=== PATIENT | female | born 1980 | race Caucasian/White ===

== ENCOUNTER 2019-05-18 20:29 | Emergency (ER) | payer SELFPAY | END 2019-05-18 23:15 | disposition home or self-care (01) | PROVIDERS: Emergency Provider Emergency Medicine; Visit Provider Emergency Medicine | DX: K80.20 Calculus of gallbladder without cholecystitis without obstruction (principal) | CPT/HCPCS: 74177; 76705; 80053; 81001; 81025; 83690; 85025; 96374; 96375; 99284; J2270; J2405; Q9967 ==

== ENCOUNTER 2020-03-23 09:30 | Outpatient (CLI) | payer OTHER, SELFPAY ==
--- NOTE | 2020-03-23 09:39 | MM_ITS ---
WS: [id number] Bilateral screening digital mammogram, 03/23/2020 Clinical Data: SCREENING Comparison: None. Findings: The breast parenchymal pattern shows fibroglandular tissue No spiculated masses or clustered calcific ations are seen. There are no secondary signs of carcinoma. MM/[id number] Impression: 1. Negative bilateral mammogram with no previous exams for review.. 2. Recommend annual screening mammograms. BIRADS: 1-Negative FOLLOW UP: 1 Year Follow-up The CAD drawing checker was used.
== END 2020-03-23 09:31 | disposition home or self-care (01) ==
LOC: RADSHAW 09:31
PROVIDERS: Visit Provider Nurse Practitioner Family
DX: Z12.31 Encounter for screening mammogram for malignant neoplasm of breast (principal)
CPT/HCPCS: 77067

== ENCOUNTER 2021-04-21 08:52 | Outpatient (CLI) | payer OTHER, SELFPAY ==
--- NOTE | 2021-04-21 09:04 | MM_ITS ---
WS: [id number] SCREENING DIGITAL MAMMOGRAM WITH CAD HISTORY: SCREENING COMPARISON: 03/23/2020 Bilateral CC and MLO views submitted. Computer aided detection analyzed. Breast composition: There are scattered areas of fibroglandular density. Hyperdensity 7 mm nodule in the anterior LEFT breast just lateral and above the nipple line. No additional interval suspicious fi ndings. There are benign calcifications within each breast. MM/[place] [id number] IMPRESSION: BI-RADS: 0-Incomplete: Need additional imaging evaluation FOLLOW UP: Need Additional Imaging LEFT breast: Spot compression views (CC and MLO). True ML. Ultrasound to follow if abnormality persists.
== END 2021-04-21 08:53 | disposition home or self-care (01) ==
PROVIDERS: Visit Provider Nurse Practitioner Family
DX: Z12.31 Encounter for screening mammogram for malignant neoplasm of breast (principal)
CPT/HCPCS: 77067

== ENCOUNTER 2021-05-04 11:27 | Outpatient (CLI) | payer OTHER, SELFPAY ==
--- NOTE | 2021-05-04 11:34 | US_ITS ---
WS: [id number] LEFT DIGITAL MAMMOGRAPHY WITH CAD CLINICAL INFORMATION: ABNORMAL MAMMOGRAM COMPARISON: April 21, 2021 TECHNIQUE: 3 views of the left breast were obtained. FINDINGS: Scattered fibroglandular densities of the left breast. Again seen is a 7 mm nodule in the anterior le ft breast just above the nipple line laterally. This persists on the spot compression views. Ultrasou nd is pending. ULTRASOUND BREAST LEFT TECHNIQUE: Ultrasound left breast focused area of concern. CLINICAL INFORMATION: ABNORMAL MAMMOGRAM COMPARISON: None. FINDINGS: Ultrasound left breast at the 12 to 3:00 position. No underlying cystic or solid lesions. No suspicio us lesions to target for biopsy. Normal underlying dense parenchymal breast tissue. US/US breast LT limited* [id number] IMPRESSION: BI-RADS: 2-Benign FOLLOW UP: 1 Year Follow-up Recommend return to annual screening mammography.
== END 2021-05-04 11:28 | disposition home or self-care (01) ==
PROVIDERS: Visit Provider Nurse Practitioner Family
DX: R92.8 Other abnormal and inconclusive findings on diagnostic imaging of breast (principal)
CPT/HCPCS: 76642; 77065

== ENCOUNTER 2022-06-12 07:58 | Outpatient (CLI) | payer OTHER, SELFPAY ==
--- NOTE | 2022-06-12 08:06 | MM_ITS ---
WS: [id number] BILATERAL SCREENING DIGITAL TOMOSYNTHESIS MAMMOGRAM WITH CAD HISTORY: SCREENING COMPARISON: 2020, 03/23/2020 Bilateral CC and MLO views with tomosynthesis and synthetic mammography submitted. Computer aided det ection analyzed. Breast composition: There are scattered areas of fibroglandular density. No suspicious masses, microc alcifications or architectural distortion. Numerous benign calcifications throughout the RIGHT breast . MM/[id number] IMPRESSION: BI-RADS: 2-Benign FOLLOW UP: 1 Year Follow-up
== END 2022-06-12 07:59 | disposition home or self-care (01) ==
LOC: RAD 07:59
DX: Z12.31 Encounter for screening mammogram for malignant neoplasm of breast (principal)
CPT/HCPCS: 77063; 77067

== ENCOUNTER 2022-07-08 02:04 | Emergency (ER) | payer SELFPAY ==
[2022-07-08] VITALS (95 sets, daily range): BP systolic 97–175; BP diastolic 61–97; PULSE 73–81; RESP 16–18; TEMP 37.3–37.4; O2SAT 95–99; BMI 33.8
--- NOTE | 2022-07-08 02:19 | USR_ITS ---
PROCEDURE INFORMATION: Exam: US Abdomen, Limited; Right Upper Quadrant Exam date and time: 07/08/2022 2:30 AM Age: 42 years old Clinical indication: Abdominal pain; Tenderness; Right upper quadrant (ruq); Additional info: Abd pain TECHNIQUE: Imaging protocol: Real time ultrasound of the abdomen with image documentation. Limited exam focused on the right upper quadrant. COMPARISON: US abdomen limited [id number] 05/18/2019 10:13 PM FINDINGS: Liver: Normal. No masses. Gallbladder: Gallstones and sludge with wall thickening up to 8.3 mm consistent with cholecystitis. Biliary ducts: Common bile duct measures up to 8.8 mm suggesting a possible distal stone. Pancreas: Visualized pancreas is unremarkable. Right kidney: Normal. No mass. No hydronephrosis. US/US gall bladder [id number] IMPRESSION: Gallstones with cholecystitis and possible distal ductal stone.
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
[2022-07-08] MEDS: ondansetron 2 mg/ML SDV 2 mL 4 MG IVP (02:29)
[2022-07-08] MEDS: morphine 4 mg/mL SDV 1 mL IVP (02:29)
[2022-07-08 02:34] LABS: Basophils # 0.1 10^3/uL (0.0-0.1); Basophils % 0.3 %; Eosinophils % 0.1 %; Hematocrit 46.2 % (37.0-47.0); Hemoglobin 15.7 g/dL (11.5-15.3); Lymphocytes # 1.3 10^3/uL (0.8-4.8); Lymphocytes % 6.6 %; Mean Corpuscular Hemoglobin 29.8 pg (28.0-34.0); Mean Corpuscular Volume 87.7 fl (81-99); Mean Platelet Volume 9.3 fL (7.4-10.4); Monocytes % 5.2 %; Neutrophils # 17.17 10^3/uL (1.8-7.7); Neutrophils % 87.2 %; Nucleated Red Blood Cells % 0 %; Platelet Count 310 10^3/cmm (130-400); Red Blood Count 5.27 10^6/uL (4.1-5.3); White Blood Count 19.7 10^3/uL (4.0-10.0)
[2022-07-08 02:53] LABS: Alanine Aminotransferase 152 U/L (0-33); Albumin Level 4.3 g/dL (3.5-5.2); Alkaline Phosphatase 109 U/L (35-105); Anion Gap 16.6 (5-19); Aspartate Amino Transferase 88 U/L (0-32); Blood Urea Nitrogen 7 mg/dL (6-20); Calcium 9.2 mg/dL (8.5-10.5); Carbon Dioxide 23 mmol/L (22-29); Chloride 96 mmol/L (98-107); Glomerular Filtration Rate 134.7 mL/min (90-130); Glucose 154 mg/dL (65-115); Lipase 31 U/L (13-60); Osmolality Calculated 275 mOsm/kg (285-295); Potassium 3.6 mmol/L (3.5-5.1); Sodium 132 mmol/L (136-145); Total Bilirubin 0.5 mg/dL (0.15-1.2); Total Protein 7.3 g/dL (6.6-8.7)
[2022-07-08 03:22] LABS: HCG, Serum Qual Negative (Negative)
--- NOTE | 2022-07-08 03:29 | MRR_ITS ---
PROCEDURE INFORMATION: Exam: MR Abdomen Without Contrast Exam date and time: 07/08/2022 4:19 AM Age: 42 years old Clinical indication: Abdominal pain; Localized; Right upper quadrant (ruq); Additional info: Abd pain TECHNIQUE: Imaging protocol: Magnetic resonance imaging of the abdomen without contrast. COMPARISON: CT abdomen pelvis w con* [id number] 05/18/2019 11:00 PM and the ultrasound of the gallbladder from earlier tonight FINDINGS: Liver: No mass. Gallbladder and bile ducts: Again seen are multiple stones throughout the gallbladder with wall thickening and pericholecystic fluid consistent with cholecystitis already seen on the ultrasound. Common bile duct is dilated. There is a 5.1 mm filling defect near the ampulla of Vater consistent with a ductal stone. Pancreas: Unremarkable. No ductal dilation. Spleen: Unremarkable. No splenomegaly. Adrenal glands: Unremarkable. No mass. Kidneys and ureters: Unremarkable. No solid mass. No hydronephrosis. Stomach and bowel: Unremarkable. Intraperitoneal space: No free fluid. Vasculature: No abdominal aortic aneurysm. Bones/joints: Unremarkable. Soft tissues: Unremarkable. MR/MR MRCP [id number] IMPRESSION: Multiple gallstones with cholecystitis and a distal common bile duct stone.
[2022-07-08 03:31] LABS: Glucose Urine UA Norm (Normal); Ketones Urine Negative (Negative); Protein Urine Trace (Negative); Urine Appearance Clear (CLEAR); Urine Color Yellow (Yellow); pH Urine 6.5 (5-7)
[2022-07-08 03:32] LABS: Add Urine Microscopic? YES; Bilirubin Urine Neg (Negative); Blood Urine 1+ (Negative); Leukocyte Esterase Urine Negative (Negative); Nitrate Urine Negative (Negative); Urobilinogen Urine 4 mg/dL (Negative)
[2022-07-08 03:33] LABS: WBC Urine 0-4 /hpf (0-5)
[2022-07-08 03:34] LABS: Add Urine Culture? No; Bacteria Urine TRACE /hpf; Mucus Urine 2+ /hpf
[2022-07-08] MEDS: piperacillin-tazobactam 3.375 GM in sodium chloride 0.9% (plus) 50 ML IV ×3 (03:52→21:09)
[2022-07-08] MEDS: acetaminophen 500 mg Tablet 1000 MG PO (11:59)
== END 2022-07-08 23:25 | disposition short-term general hospital (02) ==
PROVIDERS: Nurse Practitioner Family; Emergency Provider Emergency Medicine
DX: K80.00 Calculus of gallbladder with acute cholecystitis without obstruction (principal); Z87.891 Personal history of nicotine dependence
CPT/HCPCS: 74181; 76705; 80053; 81001; 83690; 84703; 85025; 87040; 96365; 96375; 96376; 99285; J2270; J2405; J2543

== ENCOUNTER → 2022-07-21 14:44 | Outpatient (BNVA) | payer MEDICAID, SELFPAY | PROVIDERS: PCP Family Medicine; Visit Provider Family Medicine | DX: R79.89 Other specified abnormal findings of blood chemistry (principal) | CPT/HCPCS: 80053; 80061; 82977; 85025 ==

== ENCOUNTER 2023-06-21 15:04 | Outpatient (CLI) | payer OTHER, SELFPAY ==
--- NOTE | 2023-06-21 15:11 | MM_ITS ---
WS: [id number] SCREENING DIGITAL TOMOSYNTHESIS MAMMOGRAM WITH CAD HISTORY: SCREENING COMPARISON: 06/12/2022, 04/21/2021 and 03/23/2020 Bilateral CC and MLO with tomosynthesis views submitted. Synthetic mammography reviewed. Computer aid ed detection analyzed. Breast composition: The breasts are heterogeneously dense, which may obscure small masses. No suspici ous masses, microcalcifications or architectural distortion. Benign calcifications RIGHT breast. IMPRESSION: MM/[place] [id number] BI-RADS: 2-Benign FOLLOW UP: 1 Year Follow-up
== END 2023-06-21 15:05 | disposition home or self-care (01) ==
LOC: RAD 15:04
PROVIDERS: PCP Family Medicine; Visit Provider Family Medicine
DX: Z12.31 Encounter for screening mammogram for malignant neoplasm of breast (principal); R92.333 Mammographic heterogeneous density, bilateral breasts; R92.1 Mammographic calcification found on diagnostic imaging of breast
CPT/HCPCS: 77063; 77067

== ENCOUNTER 2024-05-23 08:56 | Outpatient (CLI) | payer OTHER, SELFPAY ==
--- NOTE | 2024-05-23 | MM_ITS ---
WS: [id number] BILATERAL SCREENING DIGITAL TOMOSYNTHESIS MAMMOGRAM WITH CAD HISTORY: ANNUAL SCREENING COMPARISON: 06/21/2023, 06/12/2022, 03/23/2020 and 04/21/2021 Bilateral CC and MLO views with tomosynthesis and synthetic mammography submitted. Computer aided det ection analyzed. Breast composition: The breasts are heterogeneously dense, which may obscure small masses. No suspici ous masses, microcalcifications or architectural distortion. Focal asymmetries in the anterior RIGHT breast are stable over multiple prior years. Additional bilateral calcifications are stable. MM/MM scr tomosynthesis [id number] IMPRESSION: BI-RADS: 2 - Benign FOLLOW UP: 1 Year Follow-up
== END 2024-05-23 08:57 | disposition home or self-care (01) ==
LOC: RAD 08:57
PROVIDERS: PCP Family Medicine; Visit Provider Advanced Practice Midwife
DX: Z12.31 Encounter for screening mammogram for malignant neoplasm of breast (principal); R92.333 Mammographic heterogeneous density, bilateral breasts; N64.89 Other specified disorders of breast; R92.1 Mammographic calcification found on diagnostic imaging of breast
CPT/HCPCS: 77063; 77067

== ENCOUNTER 2025-01-26 18:14 | Emergency (ER) | payer OTHER, SELFPAY ==
--- OUTSIDE RECORDS SUMMARY | 2025-01-26 18:19 | XMS_ITS | Clinical Summary ---
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 Gender Identity Not on file Sexual Orientation Not on file Last Filed Vital Signs Vital Sign Reading Time Taken Comments Blood Pressure 144/90 12/16/2010 3:26 PM CDT Pulse 99 12/16/2010 3:26 PM CDT Temperature 36.9 C (98.4 F) 12/16/2010 3:26 PM CDT Respiratory Rate 16 12/16/2010 3:26 PM CDT Oxygen Saturation 98% 12/16/2010 3:26 PM CDT Inhaled Oxygen Concentration - - Weight 108.9 kg (240 lb) 12/16/2010 3:26 PM CDT Height 158.8 cm (5' 2.5 ) 12/16/2010 3:26 PM CDT Body Mass Index 43.2 12/16/2010 3:26 PM CDT Plan of Treatment Health Maintenance Due Date Last Done Comments DTAP/TDAP/TD VACCINES (1 - Tdap) 1998 HEPATITIS B VACCINES (1 of 3 - 19+ 3-dose series) 01/1999 HPV/Cotest (21-29) 2000 HPV VACCINES (1 - 3-dose SCDM series) 2006 CERVICAL CANCER SCREENING 2009 HPV/Cotest (30-65) 2009 PAP SMEAR 2009 BREAST CANCER SCREENING 2019 COLORECTAL SCREENING 2024 Colorectal Cancer Screening 2024 FIT-DNA Q 3 years 2024 FIT/FOBT Q 1 year 2024 Flex Sig/CT Colonography Q 5 years 2024 INFLUENZA VACCINE (#1) 2024
--- OUTSIDE RECORDS SUMMARY | 2025-01-26 18:19 | XMS_ITS | Clinical Summary ---
Author Organization [facility] Address [address] [facility] Attn: Epic Prelude ADT LISETH LEZAMA [address] Care Team Providers Care Crossing Flagman Name Role Phone Unavailable Primary Care Provider Unavailabl e Allergies No known active allergies Active Problems Problem Noted Date Diagnosed Date Morbid obesity 12/16/2010 Family History Medical History Relation Name Comments Heart Disease Paternal Grandfather Relation Name Status Comments Paternal Grandfather Social History Tobacco Use Types Packs/Day Years Used Date Smoking Tobacco: Former Cigarettes Q uit: 06/18/2010 Alcohol Use Standard Drinks/Week Comments Not Asked 0 (1 standard drink = 0.6 oz pur e alcohol) Comments Unknown Sex and Gender Information Value Date Recorded Sex Assigned at Not on file 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
[2025-01-26 18:48] VITALS: BP 173/96; PULSE 87; TEMP 37.2; O2SAT 99
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
[2025-01-26] MEDS: tetanus-dipt-pertussis 0.5 mL SDV IM (19:45)
[2025-01-26 20:09] VITALS: BP 158/80; PULSE 76; O2SAT 99
== END 2025-01-26 20:10 | disposition home or self-care (01) ==
PROVIDERS: Emergency Provider Emergency Medicine; PCP Family Medicine
DX: L03.114 Cellulitis of left upper limb (principal); W54.0XXA Bitten by dog, initial encounter; Z87.891 Personal history of nicotine dependence; I10 Essential (primary) hypertension
CPT/HCPCS: 90715; 99283; J9999